=== PATIENT | male | born 1995 | race Caucasian/White ===

== ENCOUNTER 2018-05-06 01:08 | Emergency (ER) | payer SELFPAY ==
--- NOTE | 2018-05-06 01:26 | C.PDOC ---
Time Seen by Provider: 05/06/18 01:26 Chief Complaint (Nursing): Abdominal Pain Past Medical History Vital Signs: Last Vital Signs Temp 98.1 F 05/06/18 01:16 Pulse 75 05/06/18 01:16 Resp 22 05/06/18 01:16 BP 125/78 05/06/18 01:16 Pulse Ox 98 05/06/18 01:16 - Medical History PMH: Denies: Chronic Kidney Disease - Social History Hx Tobacco Use: No Hx Alcohol Use: No Hx Substance Use: No - Immunization History Hx Tetanus Toxoid Vaccination: No Hx Influenza Vaccination: No Hx Pneumococcal Vaccination: No ED Course And Treatment O2 Sat by Pulse Oximetry: 98 Disposition Counseled Patient/Family Regarding: Studies Performed, Diagnosis - Disposition Disposition Time: :26
[2018-05-06] MEDS ORDERED: Magnesium Citrate Oral SOL (300 ml) PO ONE (01:40)
[2018-05-06] MEDS ORDERED: Magnesium Citrate Oral SOL (300 ml) ONE (01:50)
[2018-05-06 01:57] LABS: SQUAMOUS EPITHIAL < 1 /hpf (0-5); URINE BILIRUBIN NEGATIVE (NEGATIVE); URINE BLOOD NEGATIVE (NEGATIVE); URINE CLARITY Clear (Clear); URINE COLOR Yellow (YELLOW); URINE GLUCOSE (UA) NORMAL (Normal); URINE LEUKOCYTE ESTERASE NEG Leu/uL (Negative); URINE PROTEIN NEGATIVE (NEGATIVE)
[2018-05-06 01:58] LABS: BASO % 0.6 % (0.0-2.0); EOS # 0.3 K/uL (0.0-0.7); EOS % 5.2 % (0.0-4.0); HEMOGLOBIN 14.6 g/dL (12.0-18.0); LYMPH # 2.1 K/uL (1.0-4.3); LYMPH % 34.1 % (20.0-40.0); MEAN CELL VOLUME 85.4 fL (80.0-94.0); MEAN CORPUSCULAR HEMOGLOBIN 28.7 pg (27.0-31.0); MEAN CORPUSCULAR HGB CONC 33.7 g/dL (33.0-37.0); MONO # 0.8 K/uL (0.0-0.8); MONO % 12.6 % (0.0-10.0); NEUT # 2.9 K/uL (1.8-7.0); NEUT % 47.5 % (50.0-75.0); RBC 5.09 Mil/uL (4.40-5.90); RED CELL DISTRIBUTION WIDTH 13.3 % (11.5-14.5); WHITE BLOOD COUNT 6.1 K/uL (4.8-10.8)
[2018-05-06 02:11] LABS: ALB/GLOB RATIO 1.3 (1.0-2.1); ALBUMIN 4.4 g/dL (3.5-5.0); ALT/SGPT 174 U/L (21-72); AST/SGOT 62 U/L (17-59); BLOOD UREA NITROGEN 12 mg/dL (9-20); CALCIUM 9.4 mg/dl (8.6-10.4); GFR AFRICAN-AMERICAN > 60; GFR NON-AFRICAN AMERICAN > 60; LIPASE 66 U/L (23-300)
[2018-05-06 02:44] VITALS: BP 120/70; PULSE 67; RESP 16; TEMP 98.3; O2SAT 100
--- NOTE | 2018-05-06 03:03 | C.PDOC ---
History Of Present Illness 22 year old male presents to the ER with a complaint of diffuse abdominal pain for the past 3 days. 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 Patient had an episode of the same last year. Denies nausea, vomiting, or diarrhea. Time Seen by Provider: 05/06/18 01:26 Chief Complaint (Nursing): Abdominal Pain History Per: Patient History/Exam Limitations: no limitations Onset/Duration Of Symptoms: Days Current Symptoms Are (Timing): Still Present Location Of Pain/Discomfort: Diffuse Radiation Of Pain To:: None Quality Of Discomfort: Unable To Describe Associated Symptoms: denies: Nausea, Vomiting, Diarrhea Exacerbating Factors: None Alleviating Factors: None Last Bowel Movement: Days Ago (4) Recent travel outside of the [place]: No Past Medical History Reviewed: Historical Data, Nursing Documentation, Vital Signs Vital Signs: Last Vital Signs Temp 98.3 F 05/06/18 02:44 Pulse 67 05/06/18 02:44 Resp 16 05/06/18 02:44 BP 120/70 05/06/18 02:44 Pulse Ox 100 05/06/18 03:14 - Medical History PMH: No Chronic Diseases Surgical History: No Surg Hx Family History: States: Unknown Family Hx - Social History Hx Tobacco Use: No Hx Alcohol Use: No Hx Substance Use: No - Immunization History Hx Tetanus Toxoid Vaccination: No Hx Influenza Vaccination: No Hx Pneumococcal Vaccination: No Review Of Systems Constitutional: Negative for: Fever, Chills Cardiovascular: Negative for: Chest Pain, Palpitations Respiratory: Negative for: Cough, Shortness of Breath Gastrointestinal: Positive for: Abdominal Pain, Constipation. Negative for: Nausea, Vomiting, Diarrhea Physical Exam - Physical Exam Appears: Non-toxic Skin: Normal Color, Warm, Dry Head: Atraumatic, Normacephalic Eye(s): bilateral: Normal Inspection Oral Mucosa: Moist Chest: Symmetrical, No Tenderness Cardiovascular: Rhythm Regular Respiratory: Normal Breath Sounds, No Rales, No Rhonchi, No Wheezing Gastrointestinal/Abdominal: Soft, Tenderness (Mildly diffuse. No RUQ.), No Guarding, No Rebound Back: No CVA Tenderness Neurological/Psych: Oriented x3, Normal Speech ED Course And Treatment - Laboratory Results Result Diagrams: 05/06/18 01:52 05/06/18 01:52 O2 Sat by Pulse Oximetry: 100 - Other Rad Obstructive series X-Ray: Interpreted by Me, Viewed By Me Interpretation: No acute pathology Progress Note: Blood work and urinalysis ordered, results were negative. Pepcid and mag citrate administered. Patient had a large bowel movement while in the ER , he reports improvement of pain. Patient is resting comfortably in the ER in no acute distress, vitals are stable, will discharge home with Rx and instructed to follow up with PMD or return if symptoms worsen. Reevaluation Time: 03:27 Reassessment Condition: Improved Disposition Counseled Patient/Family Regarding: Diagnosis, Need For Followup, Rx Given - Disposition Referrals: [facility] [Outside] Disposition: HOME/ ROUTINE Disposition Time: 03:31 Condition: STABLE Additional Instructions: Please follow up in clinic Take medications as directed Eat high fiber diet Return to ER if worse Prescriptions: Polyethylene Glycol 3350 [Miralax] 17 gm PO DAILY #1 bottle Instructions: Constipation, Adult (DC) Forms: [place] Orders (Greenlandic) Print Language: MONEGASQUE - Clinical Impression Clinical Impression: Abdominal pain, Constipation - PA / MUNITIONS WORKER / Resident Statement MD/DO has reviewed & agrees with the documentation as recorded. - Scribe Statement The provider has reviewed the documentation as recorded by the Scribkarely Worthington All medical record entries made by the Devonteibe were at my direction and personally dictated by me. I have reviewed the chart and agree that the record accurately reflects my personal performance of the history, physical exam, medical decision making, and the department course for this patient. I have also personally directed, reviewed, and agree with the discharge instructions and disposition.
--- NOTE | 2018-05-06 10:20 | RAD ---
PROCEDURE: Radiographs of the chest and abdomen (obstructive series) HISTORY: abd pain COMPARISON: No prior. TECHNIQUE: AP radiograph of the chest, with upright and supine radiographs of the abdomen. FINDINGS: CHEST: Lungs: Clear. Cardiovascular: Normal size heart. No pulmonary vascular congestion. Pleura: No pleural fluid. No pneumothorax. Other findings: None. ABDOMEN AND PELVIS: Bowel: On 2 of the 3 abdominal images, only the 2 supine images there is dense material variable in size and shape - projecting over the left upper quadrant - inferior to the gastric bubble. On 1 of the 3 images -the upright view this finding is not seen. The hyperdense material is believed artifactual -extrinsic to the patient. No evidence of mechanical obstruction. Free air: None. Bones: Incidentally noted is incomplete closure of the S1 posterior elements -developmental variation Other findings: None. IMPRESSION: Artifacts suggested over the supine abdominal images Unremarkable radiographs of chest and abdomen. No evidence of mechanical bowel obstruction. .
== END 2018-05-06 03:42 | disposition home or self-care (01) ==
LOC: C.ER 01:08
DX: K59.00 Constipation, unspecified (principal); R10.84 Generalized abdominal pain